=== PATIENT | male | born 1985 | race African-American/Black ===

== ENCOUNTER 2016-12-30 00:01 | Emergency (ER) | payer OTHER ==
[~2016-12-30] VITALS: Ht 185.4 cm; Wt 127.0 kg
--- NOTE | ~2016-12-30 | EKG ---
[address] [address] ELECTROCARDIOGRAM REPORT Name: YASMEEN PATHAK Room #: DEP Jeffrey#: [id number] Admission: 12/30/16 Attend Phys: Discharge: 12/30/16 Date of : 83 Report #: [id number] THIS REPORT FOR: //name// [facility] ED Test Date: 2016-12-30 Test Time: 00:11:03 Pat Name: YASMEEN PATHAK Department: Room: Gender: Appeals Examiner: TIFFANY : 1985 Requested By: Tomasz Cancino Order Number: [id number] MD: Brendon Nicole Measurements Intervals [place] Rate: 94 P: 69 ND: 154 QRS: 22 QRSD: 87 T: 7 QT: 372 QTc: 466 Interpretive Statements Sinus rhythm Probable left atrial enlargement RSR' in V1 or V2, probably normal variant Compared to ECG 08/23/2014 18:11:45 RSR' in V1 or V2 now present Electronically Signed On 12-30-2016 7:46:42 CDT by Brendon Nicole [email or web address] <ELECTRONICALLY SIGNED> By: Brendon Nicole MD 12/30/16 0746 001 0011 Brendon Nicole MD /EPI
[2016-12-30 00:31] LABS: HEMATOCRIT 42.3 % (42.0-52.0); HEMOGLOBIN 14.8 gm/dL (14.0-18.0); MCH 31.6 pg (26.0-34.0); MCHC 35.1 g/dL (28.0-37.0); RBC 4.69 mil/uL (4.50-6.00); RDW 12.9 % (10.5-14.5); WBC 14.7 thou/uL (4.0-11.0)
[2016-12-30 00:36] LABS: ANION GAP 8 mmol/L (7-16); BUN 13 mg/dL (7-18); CHLORIDE 102 mmol/L (98-107); CO2 28 mmol/L (21-32); CREATININE 1.3 mg/dL (0.7-1.3); GLUCOSE 133 mg/dL (74-106); POTASSIUM 3.5 mmol/L (3.5-5.1); SODIUM 138 mmol/L (136-145)
[2016-12-30 00:44] LABS: TROPONIN-I < 0.04 ng/mL (<0.04-0.07)
[2016-12-30 01:40] VITALS: BP 137/92
== END 2016-12-30 01:42 | disposition home or self-care (01) ==
LOC: ER 00:01
PROVIDERS: Emergency Medicine
DX: R07.89 Other chest pain (principal); R05 Cough; F17.210 Nicotine dependence, cigarettes, uncomplicated; F10.99 Alcohol use, unspecified with unspecified alcohol-induced disorder